=== PATIENT | female | born 1995 | race Caucasian/White ===

== ENCOUNTER → 2018-03-03 | Outpatient (CLI) | payer MEDICAID | LOC: RAD 08:32 | DX: N83.209 Unspecified ovarian cyst, unspecified side (principal) ==

== ENCOUNTER → 2018-03-24 | Outpatient (CLI) | payer MEDICAID | LOC: RAD 13:33 | DX: L72.0 Epidermal cyst (principal) ==

== ENCOUNTER 2018-06-21 14:01 | Emergency (ER) | payer MEDICAID ==
[~2018-06-21] VITALS: Ht 154.9 cm; Wt 88.2 kg
[2018-06-21] MEDS ORDERED: EPINEPHRIN0.3 MG/0.3 IJ (14:11)
[2018-06-21] MEDS ORDERED: DULOXETINE20 MG PO (14:12)
[2018-06-21 14:41] LABS: EOS # 0.1 (0.04-0.40); EOS % 1.6 % (1.0-5.0); HEMATOCRIT 41.8 % (37.0-47.0); HEMOGLOBIN 13.5 g/dL (12.5-16.0); LYMPH# 2.7 (1.50-4.00); MEAN CELL VOLUME 81 fl (78-100); MEAN CORPUSCULAR HEMOGLOBIN 26 pg (27-31); MEAN CORPUSCULAR HGB CONC 32 g/dL (33-37); MEAN PLATELET VOLUME 11.7 fl (7.4-10.4); MONO # 0.6 (0.20-0.80); NEU # 5.2 (1.40-6.50); PLATELET COUNT 197 K/mm3 (130-400); RED BLOOD COUNT 5.14 M/mm3 (4.10-5.30); RED CELL DISTRIBUTION WIDTH 12.9 % (11.5-14.5); WHITE BLOOD COUNT 8.8 K/mm3 (4.8-10.8)
[2018-06-21 14:52] LABS: ALCOHOL IN-HOUSE < 10 mg/dL; CARBON DIOXIDE 22 mmol/L (22-30); GLUCOSE 115 mg/dL (65-105); POTASSIUM 4.5 mmol/L (3.6-5.0); SODIUM 138 mmol/L (137-145)
[2018-06-21 15:04] LABS: ACETAMINOPHEN < 4 ug/mL (10-30); ALBUMIN 4.4 g/dL (3.5-5.0); ALT/SGPT 15 U/L (9-52); AST-SGOT 29 U/L (14-36); CALCIUM 9.4 mg/dL (8.4-10.2); TOTAL BILIRUBIN 0.4 mg/dL (0.2-1.3)
[2018-06-21 18:58] VITALS: BP 137/82
== END 2018-06-21 18:57 | disposition home or self-care (01) ==
LOC: ED 14:01
PROVIDERS: Nurse Practitioner Primary Care
DX: R45.851 Suicidal ideations (principal); F33.1 Major depressive disorder, recurrent, moderate; Z79.899 Other long term (current) drug therapy; F41.9 Anxiety disorder, unspecified

== ENCOUNTER → 2018-07-29 | Outpatient (CLI) | payer MEDICAID ==
[~2018-07-29] MED LIST: DULOXETINE20 MG PO; EPINEPHRIN0.3 MG/0.3 IJ
[2018-07-29 09:40] LABS: URINE APPEARANCE HAZY; URINE COLOR YELLOW
[2018-07-29 09:41] LABS: URINE BILIRUBIN NEGATIVE (NEGATIVE); URINE BLOOD 250 ery/uL (NEGATIVE); URINE GLUCOSE NEGATIVE (NEGATIVE); URINE KETONE NEGATIVE (NEGATIVE); URINE LEUKOCYTE ESTERASE NEGATIVE (NEGATIVE); URINE MUCUS PRESENT (NOT PRESENT); URINE NITRATE POSITIVE (NEGATIVE); URINE PROTEIN(semi-quant) TRACE mg/dL (NEGATIVE); URINE UROBILINOGEN NORMAL (NORMAL)
== END ==
LOC: LAB 09:16
PROVIDERS: Family Medicine
DX: R30.0 Dysuria (principal)

== ENCOUNTER → 2018-09-02 | Outpatient (CLI) | payer MEDICAID ==
[2018-09-07 09:14] LABS: HERPES SIMPLEX TYPE 1 Negative (Negative); HERPES SIMPLEX TYPE 2 Negative (Negative)
== END ==
LOC: LAB 13:38
PROVIDERS: Family Medicine
DX: Z72.51 High risk heterosexual behavior (principal)

== ENCOUNTER → 2019-02-17 | Outpatient (CLI) | payer MEDICAID ==
[2019-02-17 15:21] LABS: EOS # 0.2 (0.04-0.40); HEMATOCRIT 39.5 % (37.0-47.0); HEMOGLOBIN 12.7 g/dL (12.5-16.0); MEAN CELL VOLUME 83 fl (78-100); MEAN CORPUSCULAR HEMOGLOBIN 27 pg (27-31); MEAN CORPUSCULAR HGB CONC 32 g/dL (33-37); MEAN PLATELET VOLUME 10.4 fl (7.4-10.4); MONO # 0.7 (0.20-0.80); NEU # 5.2 (1.40-6.50); PLATELET COUNT 278 K/mm3 (130-400); RED BLOOD COUNT 4.79 M/mm3 (4.10-5.30); RED CELL DISTRIBUTION WIDTH 12.7 % (11.5-14.5); WHITE BLOOD COUNT 9.2 K/mm3 (4.8-10.8)
[2019-02-17 15:27] LABS: ALBUMIN 3.9 g/dL (3.5-5.0); POTASSIUM 4.2 mmol/L (3.5-5.1)
[2019-02-17 15:28] LABS: CALCIUM 8.8 mg/dL (8.3-10.5)
[2019-02-17 15:30] LABS: TOTAL PROTEIN 7.1 g/dL (6.4-8.3)
[2019-02-17 15:32] LABS: TOTAL BILIRUBIN 0.2 mg/dL (0.2-1.2)
== END ==
LOC: LAB 14:59
PROVIDERS: Family Medicine
DX: D64.9 Anemia, unspecified (principal); F32.9 Major depressive disorder, single episode, unspecified; E78.5 Hyperlipidemia, unspecified

== ENCOUNTER 2019-05-01 19:19 | Emergency (ER) | payer MEDICAID ==
[~2019-05-01] VITALS: Ht 154.9 cm; Wt 89.5 kg
[2019-05-01] MEDS ORDERED: DESYREL 100MG100 MG PO (19:40)
[2019-05-01] MEDS ORDERED: KLONOPIN 0.5MG0.5 MG PO (19:41)
[2019-05-01] MEDS ORDERED: DEPO SQ (19:41)
[2019-05-01 21:19] VITALS: BP 116/76
== END 2019-05-01 21:19 | disposition home or self-care (01) ==
LOC: ED 19:19
DX: J06.9 Acute upper respiratory infection, unspecified (principal); F41.9 Anxiety disorder, unspecified; F43.10 Post-traumatic stress disorder, unspecified; F31.9 Bipolar disorder, unspecified; D64.9 Anemia, unspecified; Z87.891 Personal history of nicotine dependence; Z88.0 Allergy status to penicillin; Z88.1 Allergy status to other antibiotic agents

== ENCOUNTER → 2019-06-14 | Outpatient (CLI) | payer MEDICAID ==
[~2019-06-14] MED LIST changes: +DEPO SQ; +DESYREL 100MG100 MG PO; +KLONOPIN 0.5MG0.5 MG PO
== END ==
LOC: LAB 13:55
DX: R30.0 Dysuria (principal)

== ENCOUNTER → 2019-08-23 | Outpatient (CLI) | payer MEDICAID ==
[2019-08-23 14:16] LABS: EOS # 0.1 (0.04-0.40); EOS % 2.1 % (1.0-5.0); HEMATOCRIT 41.7 % (37.0-47.0); HEMOGLOBIN 13.5 g/dL (12.5-16.0); LYMPH# 1.9 (1.50-4.00); MEAN CELL VOLUME 82 fl (78-100); MEAN CORPUSCULAR HEMOGLOBIN 27 pg (27-31); MEAN CORPUSCULAR HGB CONC 32 g/dL (33-37); MEAN PLATELET VOLUME 10.6 fl (7.4-10.4); MONO # 0.5 (0.20-0.80); NEU # 3.3 (1.40-6.50); PLATELET COUNT 270 K/mm3 (130-400); RED CELL DISTRIBUTION WIDTH 12.8 % (11.5-14.5); WHITE BLOOD COUNT 5.9 K/mm3 (4.8-10.8)
[2019-08-23 14:23] LABS: ALBUMIN 4.1 g/dL (3.5-5.0)
[2019-08-23 14:26] LABS: TOTAL PROTEIN 7.4 g/dL (6.4-8.3)
[2019-08-23 14:28] LABS: TOTAL BILIRUBIN 0.4 mg/dL (0.2-1.2)
== END ==
LOC: LAB 14:05
PROVIDERS: Physician Assistant
DX: K52.9 Noninfective gastroenteritis and colitis, unspecified (principal)

== ENCOUNTER 2019-12-03 17:01 | Emergency (ER) | payer MEDICAID ==
[~2019-12-03] VITALS: Ht 154.9 cm; Wt 90.9 kg
[2019-12-03] MEDS ORDERED: DULOXETINE60 MG PO (17:39)
[2019-12-03 18:25] LABS: EOS # 0.2 (0.04-0.40); EOS % 1.5 % (1.0-5.0); HEMATOCRIT 41.9 % (37.0-47.0); HEMOGLOBIN 13.6 g/dL (12.5-16.0); LYMPH# 3.3 (1.50-4.00); MEAN CELL VOLUME 84 fl (78-100); MEAN CORPUSCULAR HEMOGLOBIN 27 pg (27-31); MEAN CORPUSCULAR HGB CONC 33 g/dL (33-37); MEAN PLATELET VOLUME 10.3 fl (7.4-10.4); MONO # 1.2 (0.20-0.80); PLATELET COUNT 328 K/mm3 (130-400); RED BLOOD COUNT 5.02 M/mm3 (4.10-5.30); RED CELL DISTRIBUTION WIDTH 12.3 % (11.5-14.5); WHITE BLOOD COUNT 10.7 K/mm3 (4.8-10.8)
[2019-12-03 18:35] LABS: ALBUMIN 4.1 g/dL (3.5-5.0)
[2019-12-03 18:36] LABS: POTASSIUM 4.4 mmol/L (3.5-5.1)
[2019-12-03 18:37] LABS: CALCIUM 9.1 mg/dL (8.3-10.5)
[2019-12-03 18:38] LABS: TOTAL PROTEIN 7.6 g/dL (6.4-8.3)
[2019-12-03 18:40] LABS: TOTAL BILIRUBIN 0.3 mg/dL (0.2-1.2)
[2019-12-03 19:14] VITALS: BP 126/72
== END 2019-12-03 19:05 | disposition home or self-care (01) ==
LOC: ED 17:01
PROVIDERS: Family Medicine
DX: B34.9 Viral infection, unspecified (principal)

== ENCOUNTER 2020-03-18 21:25 | Emergency (ER) | payer MEDICAID ==
[~2020-03-18] VITALS: Ht 154.9 cm; Wt 97.1 kg
[~2020-03-18 21:25] MED LIST changes: +DULOXETINE60 MG PO
[2020-03-18 21:45] LABS: EOS # 0.2 (0.04-0.40); EOS % 1.3 % (1.0-5.0); HEMOGLOBIN 13.5 g/dL (12.5-16.0); MEAN CELL VOLUME 82 fl (78-100); MEAN CORPUSCULAR HEMOGLOBIN 26 pg (27-31); MEAN CORPUSCULAR HGB CONC 32 g/dL (33-37); MEAN PLATELET VOLUME 10.6 fl (7.4-10.4); MONO # 1.3 (0.20-0.80); NEU # 8.7 (1.40-6.50); PLATELET COUNT 321 K/mm3 (130-400); RED BLOOD COUNT 5.13 M/mm3 (4.10-5.30); RED CELL DISTRIBUTION WIDTH 12.8 % (11.5-14.5); WHITE BLOOD COUNT 13.2 K/mm3 (4.8-10.8)
[2020-03-18 21:53] LABS: ALBUMIN 4.1 g/dL (3.5-5.0); POTASSIUM 4.3 mmol/L (3.5-5.1)
[2020-03-18 21:56] LABS: TOTAL PROTEIN 7.9 g/dL (6.4-8.3)
[2020-03-18 21:58] LABS: TOTAL BILIRUBIN 0.3 mg/dL (0.2-1.2)
[2020-03-18] MEDS ORDERED: DULOXETINE30 MG PO (22:24)
[2020-03-18 23:26] LABS: URINE APPEARANCE HAZY; URINE COLOR YELLOW
[2020-03-18 23:27] LABS: URINE BILIRUBIN NEGATIVE (NEGATIVE); URINE BLOOD NEGATIVE (NEGATIVE); URINE GLUCOSE NEGATIVE (NEGATIVE); URINE KETONE NEGATIVE (NEGATIVE); URINE LEUKOCYTE ESTERASE TRACE (NEGATIVE); URINE NITRATE NEGATIVE (NEGATIVE); URINE PROTEIN(semi-quant) TRACE mg/dL (NEGATIVE); URINE UROBILINOGEN NORMAL (NORMAL)
[2020-03-19] MEDS ORDERED: ZOFRAN ODT4 MG PO (00:06)
[2020-03-19] MEDS ORDERED: FLAGYL500 M1 PO (00:06)
[2020-03-19] MEDS ORDERED: NORCO 325 MG-51 TA1 PO (00:06)
[2020-03-19] MEDS ORDERED: CIPRO 500MG TA500 MG PO (00:07)
[2020-03-19 01:07] VITALS: BP 132/91
== END 2020-03-19 02:13 | disposition home or self-care (01) ==
LOC: ED 21:25
PROVIDERS: Nurse Practitioner
DX: K57.92 Diverticulitis of intestine, part unspecified, without perforation or abscess without bleeding (principal); F41.9 Anxiety disorder, unspecified; F31.9 Bipolar disorder, unspecified; F17.290 Nicotine dependence, other tobacco product, uncomplicated; Z88.0 Allergy status to penicillin; Z88.6 Allergy status to analgesic agent
CPT/HCPCS: J2405; J3010; J7030; Q9967

== ENCOUNTER → 2020-07-08 | Outpatient (CLI) | payer MEDICAID ==
[~2020-07-08] MED LIST changes: +CIPRO 500MG TA500 MG PO; +DULOXETINE30 MG PO; +FLAGYL500 M1 PO; +NORCO 325 MG-51 TA1 PO; +ZOFRAN ODT4 MG PO
== END ==
LOC: LAB 10:06
DX: R43.2 Parageusia (principal); R19.7 Diarrhea, unspecified; R11.2 Nausea with vomiting, unspecified; Z20.828 Contact with and (suspected) exposure to other viral communicable diseases

== ENCOUNTER → 2020-07-11 | Outpatient (CLI) | payer MEDICAID | LOC: LAB 08:45 | DX: R19.7 Diarrhea, unspecified (principal) ==

== ENCOUNTER → 2021-01-27 | Outpatient (CLI) | payer MEDICAID ==
[~2021-01-27] MED LIST changes: +DESVENLAFAXINE50 M3 PO; +ESZOPICLONE2 MG PO; +LORAZEPAM1 M1 PO
[2021-01-27 14:05] LABS: ALBUMIN 3.8 g/dL (3.5-5.0); POTASSIUM 4.2 mmol/L (3.5-5.1)
[2021-01-27 14:06] LABS: CALCIUM 8.8 mg/dL (8.3-10.5)
[2021-01-27 14:08] LABS: TOTAL PROTEIN 7.3 g/dL (6.4-8.3)
[2021-01-27 14:09] LABS: TOTAL BILIRUBIN 0.3 mg/dL (0.2-1.2)
== END ==
LOC: LAB 13:37
DX: Z01.89 Encounter for other specified special examinations (principal)

== ENCOUNTER 2021-05-12 05:07 | Emergency (ER) | payer MEDICAID ==
[~2021-05-12 05:07] MED LIST changes: -DESVENLAFAXINE50 M3 PO; -ESZOPICLONE2 MG PO; -LORAZEPAM1 M1 PO
[2021-05-12 05:18] VITALS: BP 133/87
[2021-05-12] MEDS ORDERED: ESZOPICLONE2 MG PO (05:25)
[2021-05-12] MEDS ORDERED: LORAZEPAM1 M1 PO (05:26)
[2021-05-12] MEDS ORDERED: DESVENLAFAXINE50 M3 PO (05:27)
[2021-05-12 06:44] LABS: STREP SCREEN NEGATIVE (NEGATIVE)
[2021-05-12 06:52] LABS: BASO # 0.04 (0.02-0.10); EOS # 0.38 (0.04-0.40); EOS % 2.5 % (1.0-5.0); HEMATOCRIT 47.7 % (37.0-47.0); HEMOGLOBIN 15.1 g/dL (12.5-16.0); LYMPH# 1.66 (1.50-4.00); MEAN CELL VOLUME 83 fl (78-100); MEAN CORPUSCULAR HEMOGLOBIN 26 pg (27-31); MEAN CORPUSCULAR HGB CONC 32 g/dL (33-37); MEAN PLATELET VOLUME 12.8 fl (7.4-10.4); MONO # 1.48 (0.20-0.80); NEU # 11.72 (1.40-6.50); PLATELET COUNT 194 K/mm3 (130-400); RED BLOOD COUNT 5.75 M/mm3 (4.10-5.30); RED CELL DISTRIBUTION WIDTH 12.5 % (11.5-14.5); WHITE BLOOD COUNT 15.3 K/mm3 (4.8-10.8)
== END 2021-05-12 08:09 | disposition home or self-care (01) ==
LOC: ED 05:07
PROVIDERS: Family Medicine
DX: F41.0 Panic disorder [episodic paroxysmal anxiety] (principal); J06.9 Acute upper respiratory infection, unspecified; F41.9 Anxiety disorder, unspecified; F32.A Depression, unspecified; Z79.899 Other long term (current) drug therapy; Z20.822 Contact with and (suspected) exposure to COVID-19

== ENCOUNTER → 2021-06-24 | Outpatient (CLI) | payer MEDICAID ==
[~2021-06-24] MED LIST changes: +DESVENLAFAXINE50 M3 PO; +ESZOPICLONE2 MG PO; +LORAZEPAM1 M1 PO
[2021-06-24 14:49] LABS: BASO # 0.06 K/mm3 (0.02-0.10); EOS # 0.15 K/mm3 (0.04-0.40); EOS % 1.3 % (1.0-5.0); HEMATOCRIT 43.2 % (37.0-47.0); HEMOGLOBIN 13.6 g/dL (12.5-16.0); LYMPH# 2.91 K/mm3 (1.50-4.00); MEAN CELL VOLUME 84 fl (78-100); MEAN CORPUSCULAR HEMOGLOBIN 27 pg (27-31); MEAN CORPUSCULAR HGB CONC 32 g/dL (33-37); MEAN PLATELET VOLUME 10.9 fl (7.4-10.4); MONO # 0.87 K/mm3 (0.20-0.80); NEU # 7.71 K/mm3 (1.40-6.50); PLATELET COUNT 314 K/mm3 (130-400); RED BLOOD COUNT 5.14 M/mm3 (4.10-5.30); RED CELL DISTRIBUTION WIDTH 12.7 % (11.5-14.5); WHITE BLOOD COUNT 11.7 K/mm3 (4.8-10.8)
[2021-06-24 14:58] LABS: POTASSIUM 4.4 mmol/L (3.5-5.1)
[2021-06-24 14:59] LABS: ALBUMIN 4.2 g/dL (3.5-5.0)
[2021-06-24 15:00] LABS: CALCIUM 9.4 mg/dL (8.3-10.5)
[2021-06-24 15:01] LABS: TOTAL PROTEIN 7.6 g/dL (6.4-8.3)
[2021-06-24 15:03] LABS: TOTAL BILIRUBIN 0.5 mg/dL (0.2-1.2)
== END ==
LOC: LAB 14:36
PROVIDERS: Family Medicine
DX: Z00.00 Encounter for general adult medical examination without abnormal findings (principal); R73.9 Hyperglycemia, unspecified; E78.5 Hyperlipidemia, unspecified

== ENCOUNTER 2021-07-27 18:41 | Emergency (ER) | payer MEDICAID ==
[~2021-07-27] VITALS: Ht 154.9 cm; Wt 100.2 kg
[2021-07-27] MEDS ORDERED: HYDROXYZINE HCL25 M1 PO (18:55)
[2021-07-27] MEDS ORDERED: ESTARYLLA 35 MC1 TAB PO (18:57)
[2021-07-27 20:03] VITALS: BP 132/75
== END 2021-07-27 20:03 | disposition home or self-care (01) ==
LOC: ED 18:41
DX: L25.9 Unspecified contact dermatitis, unspecified cause (principal); F31.9 Bipolar disorder, unspecified; F41.9 Anxiety disorder, unspecified; Z79.899 Other long term (current) drug therapy

== ENCOUNTER → 2021-09-30 | Outpatient (CLI) | payer MEDICAID ==
[~2021-09-30] MED LIST changes: +ESTARYLLA 35 MC1 TAB PO; +HYDROXYZINE HCL25 M1 PO
== END ==
LOC: LAB 10:34
DX: N94.3 Premenstrual tension syndrome (principal); F41.9 Anxiety disorder, unspecified; F31.9 Bipolar disorder, unspecified; G47.00 Insomnia, unspecified; N92.1 Excessive and frequent menstruation with irregular cycle; E66.9 Obesity, unspecified; F43.10 Post-traumatic stress disorder, unspecified

== ENCOUNTER 2021-10-18 23:30 | Emergency (ER) | payer MEDICAID ==
[2021-10-19] MEDS ORDERED: [UNRECOGNIZED DRUG - OTHER] PO (00:02)
[2021-10-19] MEDS ORDERED: ABILIFY5 MG PO (00:02)
[2021-10-19] MEDS ORDERED: FLONASE ALLERG9.9 ML NS (00:05)
[2021-10-19 00:51] LABS: BASO # 0.03 K/mm3 (0.02-0.10); EOS # 0.05 K/mm3 (0.04-0.40); EOS % 0.3 % (1.0-5.0); HEMATOCRIT 40.9 % (37.0-47.0); HEMOGLOBIN 13.3 g/dL (12.5-16.0); LYMPH# 0.86 K/mm3 (1.50-4.00); MEAN CELL VOLUME 82 fl (78-100); MEAN CORPUSCULAR HEMOGLOBIN 27 pg (27-31); MEAN CORPUSCULAR HGB CONC 33 g/dL (33-37); MEAN PLATELET VOLUME 10.4 fl (7.4-10.4); MONO # 0.67 K/mm3 (0.20-0.80); NEU # 14.67 K/mm3 (1.40-6.50); PLATELET COUNT 268 K/mm3 (130-400); RED BLOOD COUNT 4.98 M/mm3 (4.10-5.30); RED CELL DISTRIBUTION WIDTH 12.7 % (11.5-14.5); WHITE BLOOD COUNT 16.3 K/mm3 (4.8-10.8)
[2021-10-19] MEDS ORDERED: NORCO 325 MG-51 TA1 PO ×2 (01:56→03:12)
[2021-10-19] MEDS ORDERED: METRONIDAZOLE500 M1 PO ×2 (01:56→03:12)
[2021-10-19] MEDS ORDERED: ZOFRAN ODT4 MG PO ×2 (01:56→03:12)
[2021-10-19] MEDS ORDERED: CIPRO500 M1 PO ×2 (01:56→03:12)
[2021-10-19 03:14] VITALS: BP 133/81
== END 2021-10-19 03:27 | disposition home or self-care (01) ==
LOC: ED 23:30
PROVIDERS: Family Medicine
DX: R05.9 Cough, unspecified (principal)

== ENCOUNTER 2022-02-13 12:47 | Emergency (ER) | payer MEDICAID ==
[~2022-02-13] VITALS: Ht 154.9 cm; Wt 100.0 kg
[~2022-02-13 12:47] MED LIST changes: +ABILIFY5 MG PO; +CIPRO500 M1 PO; +FLONASE ALLERG9.9 ML NS; +METRONIDAZOLE500 M1 PO; +[UNRECOGNIZED DRUG - OTHER] PO
[2022-02-13 13:22] LABS: BASO # 0.04 K/mm3 (0.02-0.10); EOS # 0.21 K/mm3 (0.04-0.40); EOS % 1.4 % (1.0-5.0); HEMATOCRIT 42.7 % (37.0-47.0); HEMOGLOBIN 13.8 g/dL (12.5-16.0); LYMPH# 2.43 K/mm3 (1.50-4.00); MEAN CELL VOLUME 82 fl (78-100); MEAN CORPUSCULAR HEMOGLOBIN 26 pg (27-31); MEAN CORPUSCULAR HGB CONC 32 g/dL (33-37); MEAN PLATELET VOLUME 10.4 fl (7.4-10.4); MONO # 0.99 K/mm3 (0.20-0.80); NEU # 11.57 K/mm3 (1.40-6.50); PLATELET COUNT 337 K/mm3 (130-400); RED BLOOD COUNT 5.23 M/mm3 (4.10-5.30); RED CELL DISTRIBUTION WIDTH 12.3 % (11.5-14.5); WHITE BLOOD COUNT 15.3 K/mm3 (4.8-10.8)
[2022-02-13 13:36] LABS: ALBUMIN 4.2 g/dL (3.5-5.0)
[2022-02-13 13:37] LABS: POTASSIUM 4.3 mmol/L (3.5-5.1)
[2022-02-13 13:38] LABS: CALCIUM 9.5 mg/dL (8.3-10.5)
[2022-02-13 13:39] LABS: TOTAL PROTEIN 8.1 g/dL (6.4-8.3)
[2022-02-13 13:41] LABS: TOTAL BILIRUBIN 0.5 mg/dL (0.2-1.2)
[2022-02-13 14:27] LABS: URINE APPEARANCE CLEAR; URINE BILIRUBIN NEGATIVE (NEGATIVE); URINE BLOOD NEGATIVE (NEGATIVE); URINE COLOR YELLOW; URINE GLUCOSE NEGATIVE (NEGATIVE); URINE KETONE NEGATIVE (NEGATIVE); URINE LEUKOCYTE ESTERASE NEGATIVE (NEGATIVE); URINE NITRATE NEGATIVE (NEGATIVE); URINE PROTEIN(semi-quant) NEGATIVE (NEGATIVE); URINE UROBILINOGEN NORMAL (NORMAL)
[2022-02-13] MEDS ORDERED: CIPRO500 M1 PO (16:11)
[2022-02-13] MEDS ORDERED: METRONIDAZOLE500 M1 PO (16:11)
[2022-02-13 16:43] VITALS: BP 121/94
== END 2022-02-13 16:50 | disposition home or self-care (01) ==
LOC: ED 12:47
PROVIDERS: Nurse Practitioner
DX: K52.9 Noninfective gastroenteritis and colitis, unspecified (principal); D72.829 Elevated white blood cell count, unspecified; R79.82 Elevated C-reactive protein (CRP); Z88.0 Allergy status to penicillin; Z28.311 Partially vaccinated for COVID-19
CPT/HCPCS: J1885; J7030; Q9967

== ENCOUNTER → 2022-03-03 | Outpatient (CLI) | payer MEDICAID ==
[~2022-03-03] MED LIST changes: +NYSTATIN POWDER30 GM TOP
== END ==
LOC: LAB 11:57
DX: N39.0 Urinary tract infection, site not specified (principal)

== ENCOUNTER 2022-03-05 11:31 | Emergency (ER) | payer MEDICAID ==
[~2022-03-05 11:31] MED LIST changes: -NYSTATIN POWDER30 GM TOP
[2022-03-05 11:54] VITALS: BP 132/88
[2022-03-05] MEDS ORDERED: NYSTATIN POWDER30 GM TOP (13:01)
== END 2022-03-05 13:09 | disposition home or self-care (01) ==
LOC: ED 11:31
DX: B36.9 Superficial mycosis, unspecified (principal); L81.9 Disorder of pigmentation, unspecified; Z88.0 Allergy status to penicillin; Z28.310 Unvaccinated for COVID-19

== ENCOUNTER 2023-04-14 22:23 | Emergency (ER) | payer MEDICAID ==
[~2023-04-14] VITALS: Wt 103.4 kg
[~2023-04-14 22:23] MED LIST changes: +NYSTATIN POWDER30 GM TOP
[2023-04-14] MEDS ORDERED: WELLBUTRIN XL150 M2 PO (22:57)
[2023-04-14] MEDS ORDERED: OXCARBAZEPINE150 M1 PO (22:58)
[2023-04-14] MEDS ORDERED: QUETIAPINE FUM200 M1 PO (22:59)
[2023-04-14] MEDS ORDERED: SERTRALINE50 MG PO (22:59)
[2023-04-14] MEDS ORDERED: METFORMIN ER500 MG PO (23:00)
[2023-04-14 23:35] VITALS: BP 128/78
== END 2023-04-14 23:35 | disposition home or self-care (01) ==
LOC: ED 22:23
DX: S93.402A Sprain of unspecified ligament of left ankle, initial encounter (principal); X50.1XXA Overexertion from prolonged static or awkward postures, initial encounter

== ENCOUNTER → 2024-01-31 | Outpatient (CLI) | payer MEDICAID ==
[~2024-01-31] MED LIST changes: +METFORMIN ER500 MG PO; +OXCARBAZEPINE150 M1 PO; +QUETIAPINE FUM200 M1 PO; +SERTRALINE50 MG PO; +WELLBUTRIN XL150 M2 PO
== END ==
LOC: LAB 17:13
DX: Z36.9 Encounter for antenatal screening, unspecified (principal)

== ENCOUNTER → 2024-07-01 | Outpatient (CLI) | payer MEDICAID ==
[2024-07-01 13:32] LABS: BASO # 0.03 K/mm3 (0.02-0.10); EOS # 0.09 K/mm3 (0.04-0.40); EOS % 1.1 % (1.0-5.0); HEMATOCRIT 39.2 % (37.0-47.0); HEMOGLOBIN 12.6 g/dL (12.5-16.0); LYMPH# 2.38 K/mm3 (1.50-4.00); MEAN CELL VOLUME 84 fl (78-100); MEAN CORPUSCULAR HEMOGLOBIN 27 pg (27-31); MEAN CORPUSCULAR HGB CONC 32 g/dL (33-37); MONO # 0.75 K/mm3 (0.20-0.80); NEU # 4.85 K/mm3 (1.40-6.50); PLATELET COUNT 215 K/mm3 (130-400); RED BLOOD COUNT 4.65 M/mm3 (4.10-5.30); RED CELL DISTRIBUTION WIDTH 12.4 % (11.5-14.5); WHITE BLOOD COUNT 8.1 K/mm3 (4.8-10.8)
[2024-07-01 13:39] LABS: ALBUMIN 4.3 g/dL (3.5-5.0)
[2024-07-01 13:41] LABS: CALCIUM 9.2 mg/dL (8.3-10.5)
[2024-07-01 13:42] LABS: TOTAL PROTEIN 7.3 g/dL (6.4-8.3)
[2024-07-01 13:44] LABS: TOTAL BILIRUBIN 0.3 mg/dL (0.2-1.2)
[2024-07-01 14:14] LABS: URINE APPEARANCE SLIGHTLY CLOUDY (CLEAR); URINE BILIRUBIN NEGATIVE (NEGATIVE); URINE BLOOD NEGATIVE (NEGATIVE); URINE COLOR YELLOW (YELLOW); URINE GLUCOSE NEGATIVE (NEGATIVE); URINE KETONE NEGATIVE (NEGATIVE); URINE LEUKOCYTE ESTERASE NEGATIVE (NEGATIVE); URINE MUCUS PRESENT (NOT PRESENT); URINE NITRATE NEGATIVE (NEGATIVE); URINE PROTEIN(semi-quant) NEGATIVE (NEGATIVE)
== END ==
LOC: LAB 13:19
PROVIDERS: Family Medicine
DX: N91.1 Secondary amenorrhea (principal); I10 Essential (primary) hypertension; N39.0 Urinary tract infection, site not specified